=== PATIENT | male | born 1950 | race Caucasian/White ===

== ENCOUNTER 2017-11-10 19:06 | Emergency (ER) | payer MEDICARE ==
[~2017-11-10] VITALS: Ht 177.8 cm; Wt 81.8 kg
[2017-11-10 19:09] VITALS: BP 141/96
== END 2017-11-10 20:46 | disposition home or self-care (01) ==
LOC: ED 20:05
DX: M54.12 Radiculopathy, cervical region (principal); I10 Essential (primary) hypertension; G89.29 Other chronic pain
CPT/HCPCS: 72125; 99284

== ENCOUNTER → 2018-11-19 | Outpatient (CLI) | payer MEDICARE, OTHER ==
[~2018-11-19] MED LIST: ALBU18HF INH; ESOM40CA PO; FLUT1DIS IH; LOSA1TAB25 PO; MONT10TA6 PO; SIMV20TA3 PO
[2018-11-19 15:20] LABS: BASOPHILS # (AUTO) 0.03 x10^3/uL (0-0.1); BASOPHILS % (AUTO) 0 % (0-1); EOSINOPHILS # (AUTO) 0.17 x10^3/uL (0-0.4); EOSINOPHILS % (AUTO) 2 % (1-7); LYMPHOCYTES # (AUTO) 1.99 x10^3/uL (1-3.4); LYMPHOCYTES % (AUTO) 25 % (22-44); MD NO; MEAN CORPUSCULAR HEMOGLOBIN 34.4 pg (27.5-34.5); MEAN CORPUSCULAR VOLUME 101.2 fL (81-97); MEAN PLATELET VOLUME 8.1 fL (7.4-10.4); MONOCYTES # (AUTO) 0.81 x10^3/uL (0.2-0.8); MONOCYTES % (AUTO) 10 % (2-9); NEUTROPHILS % (AUTO) 63 % (42-75); PLATELET COUNT 344 x10^3/uL (130-400); RED BLOOD COUNT 4.64 x10^6/uL (4.38-5.82); RED CELL DISTRIBUTION WIDTH 13.4 % (9.4-14.8)
[2018-11-19 15:28] LABS: ALBUMIN 4.1 g/dL (3.4-5.0); ANION GAP 5 mmol/L (5-15); CALCIUM 9.5 mg/dL (8.5-10.1); CHLORIDE 107 mmol/L (98-107)
[2018-11-19 15:28] LABS: CULTURE INDICATED? YES; MICROSCOPIC INDICATED
[2018-11-19 15:40] LABS: ALANINE AMINOTRANSFERASE 29 U/L (12-78); ALKALINE PHOSPHATASE 81 U/L (45-117); BILIRUBIN,TOTAL 0.5 mg/dL (0.2-1.0); CREATININE 1.07 mg/dL (0.7-1.3); TOTAL PROTEIN 7.5 g/dL (6.4-8.2)
[2018-11-19 16:10] LABS: INTERNATIONAL NORMALIZED RATIO 1.02 (0.93-1.1); PROTHROMBIN TIME 10.7 Seconds (9.6-11.5)
== END | disposition home or self-care (01) ==
LOC: STAR 13:56
PROVIDERS: ATTEND Neurological Surgery
DX: Z01.810 Encounter for preprocedural cardiovascular examination (principal); M47.812 Spondylosis without myelopathy or radiculopathy, cervical region; Z82.49 Family history of ischemic heart disease and other diseases of the circulatory system
CPT/HCPCS: 36415; 71046; 80053; 81001; 85025; 85610; 85730; 87086; 93005

== ENCOUNTER 2018-12-02 06:59 | Observation (INO) | payer MEDICARE, OTHER ==
[2018-11-19 14:36] VITALS: BP 143/96
[~2018-12-02] VITALS: Ht 177.8 cm; Wt 91.0 kg
[~2018-12-02 06:59] MED LIST changes: +BACITRACIN 50,000 UNIT ONE; +BUPIVACAINE/EPI 0.5% 1:200K ONE; +THROMBIN 5,000 UNIT VIAL TP ONE
[2018-12-02] MEDS ORDERED: LACTATED RINGERS 1,000 ML IV SCH (07:23)
[2018-12-02] MEDS ORDERED: MIDAZOLAM 1 MG/ML, 2ML ONE (09:17)
[2018-12-02] MEDS ORDERED: FENTANYL PF 250 MCG/5ML ONE (09:17)
[2018-12-02] MEDS ORDERED: THROMBIN 20,000 UNIT VIAL TP ONE (09:48)
[2018-12-02] MEDS ORDERED: ONDANSETRON 2MG/ML, 2ML ONE (09:56)
[2018-12-02] MEDS ORDERED: CEFAZOLIN 1,000 MG ONE (09:56)
[2018-12-02] MEDS ORDERED: PROPOFOL 10 MG/ML, 50ML ONE (09:56)
[2018-12-02] MEDS ORDERED: ROCURONIUM 10 MG/ML,10ML ONE (09:56)
[2018-12-02] MEDS ORDERED: SUCCINYLCHOLINE 20 MG/ML, 10ML ONE (09:56)
[2018-12-02] MEDS ORDERED: DEXAMETHASONE 4 MG/ML, 1ML ONE (09:56)
[2018-12-02] MEDS ORDERED: PROPOFOL 10 MG/ML, 20ML ONE (09:56)
[2018-12-02] MEDS ORDERED: LABETALOL 5MG/ML, 20ML IV PRN (10:30)
[2018-12-02] MEDS ORDERED: PROMETHAZINE 25 MG/ML, 1ML IV PRN (10:30)
[2018-12-02] MEDS ORDERED: KETOROLAC 30 MG/1 ML IV PRN (10:30)
[2018-12-02] MEDS ORDERED: HYDROmorphone 2 MG/ML, 1ML IVPush PRN ×2 (10:30→12:00)
[2018-12-02] MEDS ORDERED: hydrALAzine 20 MG/ML, 1ML IV PRN (10:30)
[2018-12-02] MEDS ORDERED: ACETAMINOPHEN 325 MG TABLET PO PRN (10:30)
[2018-12-02] MEDS ORDERED: ALBUTEROL SULFATE 2.5 MG/3 ML NPPB PRN (10:30)
[2018-12-02] MEDS ORDERED: DIAZEPAM 5 MG/ML, 2ML IVPush PRN (10:30)
[2018-12-02] MEDS ORDERED: MEPERIDINE/PF 25MG/0.5ML IVPush PRN (10:30)
[2018-12-02] MEDS ORDERED: FENTANYL PF 100 MCG/2ML IV PRN (10:30)
[2018-12-02] MEDS ORDERED: BISACODYL 10 MG SUPP PR PRN (12:00)
[2018-12-02] MEDS ORDERED: PHARMACY MAY ADJ FOR RENAL FX MC PRN (12:00)
[2018-12-02] MEDS ORDERED: DIPHENHYDRAMINE 50 MG/ML, 1ML IVPush PRN (12:00)
[2018-12-02] MEDS ORDERED: TEMPLATE NON-FORMULARY MED. (Albuterol Sulfate (Ventolin Hfa) 2 PUFFS) INH PRN ×2 (12:00→15:13)
[2018-12-02] MEDS ORDERED: TIZANIDINE 4MG TABLET PO PRN (12:00)
[2018-12-02] MEDS ORDERED: MAGNESIUM HYDROXIDE 8%, 30ML UDC PO PRN (12:00)
[2018-12-02] MEDS ORDERED: ONDANSETRON 2MG/ML, 2ML IVPush PRN (12:00)
[2018-12-02] MEDS ORDERED: PROMETHAZINE 25 MG/ML, 1ML IM PRN (12:00)
[2018-12-02] MEDS ORDERED: ACETAMINOPHEN 650 MG/20.3 ML UDC ONE (12:05)
[2018-12-02] MEDS ORDERED: FENTANYL PF 100 MCG/2ML ONE (12:05)
[2018-12-02] MEDS ORDERED: OXYcodone 5 MG/5 ML ORAL.SOL UDC ONE ×2 (12:05→13:27)
[2018-12-02] MEDS ORDERED: ACETAMINOPHEN 325 MG TABLET ONE (12:06)
[2018-12-02] MEDS: OXYcodone 5 MG/5 ML ORAL.SOL UDC PO PRN ×2 (13:15→13:28)
[2018-12-02 13:55] VITALS: BP 152/97
[2018-12-02] MEDS: CEFAZOLIN PMX 1GM/50ML 50 ML IVPB SCH ×2 (16:53→23:43)
[2018-12-02] MEDS: NS + 20MEQ KCL 1,000 ML IV SCH (16:54)
[2018-12-02] MEDS: OXYcodone/APAP 5/325MG TABLET PO PRN ×2 (17:27→21:46)
[2018-12-02 19:00] VITALS: BP 125/79
[2018-12-02] MEDS: SODIUM CHLORIDE FLUSH 10ML SYR IVF SCH (20:51)
[2018-12-02] MEDS ORDERED: SIMVASTATIN 20 MG TABLET PO SCH (21:00)
[2018-12-02 21:59] VITALS: BP 118/79
[2018-12-03 00:03] VITALS: BP 116/75
[2018-12-03] MEDS: OXYcodone/APAP 5/325MG TABLET PO PRN ×3 (02:38→11:32)
[2018-12-03 04:57] VITALS: BP 128/82
[2018-12-03] MEDS: NS + 20MEQ KCL 1,000 ML IV SCH (08:00)
[2018-12-03 08:25] VITALS: BP 126/80
[2018-12-03] MEDS: SODIUM CHLORIDE FLUSH 10ML SYR IVF SCH (08:43)
[2018-12-03] MEDS ORDERED: LOSARTAN 50MG TABLET PO SCH (09:00)
[2018-12-03] MEDS ORDERED: HYDROCHLOROTHIAZIDE 12.5 MG CAPSULE PO SCH (09:00)
[2018-12-03] MEDS ORDERED: TEMPLATE NON-FORMULARY MED. (Losartan/Hydrochlorothiazide** (Losartan-Hctz 100-12.5 Mg Tab PO SCH (09:00)
[2018-12-03] MEDS ORDERED: SENNA/DOCUSATE TABLET PO SCH (09:00)
[2018-12-03] MEDS ORDERED: MONTELUKAST 10 MG TABLET PO SCH (09:00)
[2018-12-03 11:39] VITALS: BP 128/87
[2018-12-03] MEDS ORDERED: OXYC-302 PO (12:50)
== END 2018-12-03 13:12 | disposition home or self-care (01) ==
LOC: OUT 06:59 → ORIP 11:36 → 4NOR 13:50 → DCLOUNGE 12-03 13:00
PROVIDERS: ADMIT Neurological Surgery; ATTEND Neurological Surgery
DX: M47.812 Spondylosis without myelopathy or radiculopathy, cervical region (principal); M43.12 Spondylolisthesis, cervical region; I10 Essential (primary) hypertension; J45.909 Unspecified asthma, uncomplicated; F17.210 Nicotine dependence, cigarettes, uncomplicated; Z79.899 Other long term (current) drug therapy
CPT/HCPCS: 20937; 22551; 22853; 72040; 95938; 95941; 96365; 96366; 97161; 97165; C1713; G0378; J0330; J0690; J1100; J2250; J2405; J2704; J3010; J3480; J7120